=== PATIENT | male | born 1970 | race Caucasian/White ===

== ENCOUNTER → 2019-04-14 | Outpatient (CLI) | payer OTHER ==
--- NOTE | 2019-04-14 15:27 | Diagnostic Imaging Report ---
MRI of the right shoulder without contrast. History: Shoulder pain. Strain of right deltoid. Decreased range of motion. Comparison: None Technique: Coronal PD FS, sagital PD FS, and axial PD and PD FS. Findings: Rotator cuff: Rotator cuff tendinosis with articular sided partial tear involving the anterior fibers of the supraspinatus tendon at the humeral insertion site. This is best seen on coronal image 13. There is an articular sided partial tear involving the anterior fibers of the subscapularis tendon at the humeral insertion site best seen on axial image 14. Additionally, there is infraspinatus tendinosis. The teres minor tendon is intact Osseous acromion complex: Type II acromion with mild lateral downsloping. Moderate degenerative arthrosis at the acromioclavicular joint with undersurface spurring and narrowing of the supraspinatus tendon outlet. Glenohumeral joint: Degeneration and fraying of the labrum. The articular cartilage surfaces are intact. The humeral head is well-seated in the glenoid fossa. Small effusion and mild synovitis in the rotator interval and subcoracoid space Biceps tendon: Intra-articular biceps tendinosis with partial tearing at the biceps anchor. Fluid is seen surrounding the biceps tendon in the bicipital groove with associated partial tearing which is best seen on axial image 18 through 21 Other findings: Negative for muscle denervation or osseous fracture Impression: Rotator cuff tendinosis with articular sided partial tear involving the anterior fibers of the supraspinatus tendon at the humeral insertion site. There is an articular sided partial tear involving the anterior fibers of the subscapularis tendon at the humeral insertion site. Intra-articular biceps tendinosis with partial tearing at the biceps anchor. Fluid is seen surrounding the biceps tendon in the bicipital groove with associated partial tearing. Moderate degenerative arthrosis at the acromioclavicular joint with undersurface spurring and narrowing of the supraspinatus tendon outlet Signed by: Dr. Danilo Ramos M.D. on 04/14/2019 3:24 PM
== END ==
LOC: MRI 11:41
PROVIDERS: ATTEND Family Medicine
DX: S46.811D Strain of other muscles, fascia and tendons at shoulder and upper arm level, right arm, subsequent encounter (principal)